=== PATIENT | male | born 1980 | race Caucasian/White ===

== ENCOUNTER 2017-08-02 06:50 | Day surgery (SDC) | payer BC ==
[~2017-08-02] VITALS: Ht 175.3 cm; Wt 65.3 kg
[~2017-08-02 06:50] MED LIST: AMITRIPTYLINE H50 MG PO; ATIVAN2 MG PO; ULTRAM50 MG PO
[2017-08-02 07:04] VITALS: BP 125/68; Ht 175.3 cm; Wt 65.3 kg
== END 2017-08-02 14:20 | disposition home or self-care (01) ==
LOC: D.OPS 06:50 → D.PAN 09:00 → D.OPS 09:00
DX: K57.92 Diverticulitis of intestine, part unspecified, without perforation or abscess without bleeding (principal); K64.8 Other hemorrhoids; K62.5 Hemorrhage of anus and rectum; F17.200 Nicotine dependence, unspecified, uncomplicated; J45.909 Unspecified asthma, uncomplicated; Z01.812 Encounter for preprocedural laboratory examination